=== PATIENT | male | born 1975 | race Caucasian/White ===

== ENCOUNTER 2017-06-10 01:29 | Day surgery (SDC) | payer OTHER ==
--- NOTE | 2017-06-10 02:34 | XRAY Preliminary Report ---
Exam: XR FOOT 3 VIEW RT IMPRESSION: Abnormal widening of the joint space between the bases of the first and second metatarsal s, worrisome for ligamentous injury (Lisfranc injury). Moderate dorsal soft tissue swelling. [facility] SITE ID: [id number]
--- NOTE | 2017-06-10 02:36 | XRAY Report ---
EXAM: RIGHT FOOT RADIOGRAPHY EXAM DATE: 06/10/2017 02:22 AM. CLINICAL HISTORY: Metatarsal tenderness and swelling 1st 2nd digit. COMPARISON: None. TECHNIQUE: 3 views. FINDINGS: Bones: No evident acute displaced fracture. Joints: There is abnormal widening of the space between the bases of the first and second metatarsals . Soft Tissues: Moderate dorsal soft tissue swelling. IMPRESSION: Abnormal widening of the joint space between the bases of the first and second metatarsal s, worrisome for ligamentous injury (Lisfranc injury). Moderate dorsal soft tissue swelling. [facility] Referring Provider Line: [phone] SITE ID: [id number]
[2017-06-10] MEDS ORDERED: MORPHINE 10 MG/ML VIAL IVP STA ×2 (02:52→06:24)
[2017-06-10] MEDS ORDERED: MORPHINE 10 MG/ML VIAL ONE ×2 (03:12→06:32)
[2017-06-10 03:15] LABS: BASOPHILS % (AUTO) 0.5 %; EOSINOPHILS # (AUTO) 0.2 10^3/uL (0.0-0.7); EOSINOPHILS % (AUTO) 1.6 %; HCT - HEMATOCRIT 44.5 % (42.0-52.0); LYMPHOCYTES # (AUTO) 3.4 10^3/uL (1.5-3.5); LYMPHOCYTES % (AUTO) 31.8 %; MEAN CORPUSCULAR HEMOGLOBIN 29.2 pg (27.0-31.0); MEAN CORPUSCULAR HGB CONC 33.8 g/dL (32.0-36.0); MEAN CORPUSCULAR VOLUME 86.3 fL (80.0-94.0); MEAN PLATELET VOLUME 9.6 fL (7.4-11.4); MONOCYTES # (AUTO) 0.9 10^3/uL (0.0-1.0); MONOCYTES % (AUTO) 8.3 %; NEUTROPHILS # (AUTO) 6.1 10^3/uL (1.5-6.6); NEUTROPHILS % (AUTO) 57.8 %; NUCLEATED RED BLOOD CELLS AUTO 0.1 /100WBC; RED BLOOD COUNT 5.16 10^6/uL (4.70-6.10); RED CELL DISTRIBUTION WIDTH 13.9 % (12.0-15.0); UNCORRECTED WHITE BLOOD COUNT 10.6 x10^3/uL; WHITE BLOOD COUNT 10.6 x10^3/uL (4.8-10.8)
--- NOTE | 2017-06-10 03:20 | ED Physician Documentation ---
PD HPI LOWER EXT INJURY - Stated complaint Stated Complaint: R FOOT PX - Chief complaint Chief Complaint: Ext Problem - History obtained from History obtained from: Patient - History of Present Illness PD HPI LOW EXT INJURY LOCATION: Right, Foot Type of injury: Twist Where injury occurred: Street Timing - onset: How many hours ago (7) Timing - details: Abrupt onset Improved by: Immobilization Worsened by: Moving, Palpating Similar symptoms before: Has not had sx before Recently seen: Not recently seen - Additional information Additional information: Patient is a 41 year old male with no significant past medical history who is presenting to the emergency department for foot pain. Patient states that he was stepping off a step when he caught his toes underneath him pushing his foot forward. The injury occurred about 7 hours prior. Patient denies any other trauma but states that the pain and swelling just kept getting progressively worse so he came in for evaluation. Review of Systems Constitutional: denies: Fever, Chills Eyes: reports: Reviewed and negative Ears: reports: Reviewed and negative Nose: reports: Reviewed and negative Throat: reports: Reviewed and negative Cardiac: reports: Reviewed and negative Respiratory: reports: Reviewed and negative GI: reports: Reviewed and negative : reports: Reviewed and negative Skin: reports: Lesions. denies: Laceration (s) Musculoskeletal: reports: Extremity pain, Extremity swelling, Pain with weight bearing Neurologic: denies: Generalized weakness, Focal weakness, Numbness Psychiatric: reports: Reviewed and negative Endocrine: reports: Reviewed and negative Immunocompromised: denies: Immunocompromised PD PAST MEDICAL HISTORY - Past Medical History Cardiovascular: None Respiratory: None Neuro: None Endocrine/Autoimmune: None GI: None : None HEENT: None Psych: Depression, Anxiety Musculoskeletal: None Derm: None - Past Surgical History Past Surgical History: Yes Ortho: Arthroscopic surgery HEENT: Tonsil/Adenoidectomy - Present Medications Home Medications: Ambulatory Orders Medication Instructions Recorded Confirmed Aripiprazole [Abilify] 30 mg ORAL DAILY 12/10/15 12/10/15 Bupropion HCl [Wellbutrin] 150 mg ORAL BID 12/10/15 12/10/15 HYDROcod/ACETAM 5/325 [[place] 5/325] 1 tab ORAL BID 12/10/15 12/10/15 Hydrocodone/Acetaminophen [[place] 1 each PO Q6H PRN #20 tablet 12/10/15 5-325 Tablet] Naproxen [Naprosyn] 500 mg PO BID 10 Days tablet 12/10/15 clonazePAM [Clonazepam] 0.5 mg ORAL DAILY PRN 12/10/15 12/10/15 - Allergies Allergies/Adverse Reactions: Allergies Allergy/AdvReac Type Severity Reaction Status Date / Time No Known Drug Allergies Allergy Verified 06/10/17 01:38 - Social History Does the pt smoke?: Yes Smoking Status: Current every day smoker Does the pt drink ETOH?: No Does the pt have substance abuse?: No - Immunizations Immunizations are current?: Yes PD ED PE NORMAL - Vitals Vital signs reviewed: Yes - General General: Alert and oriented X 3, Well developed/nourished - HEENT HEENT: Atraumatic, PERRL, Moist mucous membranes - Neck Neck: No bony TTP - Cardiac Cardiac: RRR, No murmur - Respiratory Respiratory: No respiratory distress - Abdomen Abdomen: Non distended - Neuro Neuro: Alert and oriented X 3, No motor deficit, No sensory deficit, Normal speech Eye Opening: Spontaneous Motor: Obeys Commands Verbal: Oriented GCS Score: 15 - Psych Psych: Normal mood PD ED PE EXPANDED - Derm Derm: Bruising (of right foot) - Extremities Extremities: Right foot (tenderness and swelling over 1st and 2nd metatarsal on right foot) Results - Vitals Vitals: Vital Signs - 24 hr 06/10/17 06/10/17 01:34 03:50 Temperature 36.8 C Heart Rate 86 76 Respiratory 18 18 Rate Blood Pressure 140/89 H 131/78 H O2 Saturation 95 96 Oxygen O2 Source Room air - Labs Labs: Laboratory Tests 06/10/17 06/10/17 03:00 03:00 WBC 10.6 RBC 5.16 Hgb 15.0 Hct 44.5 MCV 86.3 MCH 29.2 MCHC 33.8 RDW 13.9 Plt Count 208 MPV 9.6 Neut # 6.1 Lymph # 3.4 [place] # 0.9 Eos # 0.2 Baso # 0.0 Absolute Nucleated RBC 0.01 Nucleated RBC % 0.1 Sodium 137 Potassium 4.0 Chloride 104 Carbon Dioxide 24 Anion Gap 9.0 BUN 14 Creatinine 0.9 Estimated GFR (MDRD) 93 Glucose 118 H Calcium 9.1 Total Bilirubin 0.5 AST 27 ALT 33 Alkaline Phosphatase 52 Total Protein 7.6 Albumin 4.6 Globulin 3.0 Albumin/Globulin Ratio 1.5 Lipase 19 L - Rads (name of study) right foot Radiology: Final report received (abnormal widening of joint space concerning for lisfranc injury) ct foot Radiology: Final report received, Discussed with rads (lisfranc fracture/ dislocation) PD MEDICAL DECISION MAKING - ED course Complexity details: reviewed old records, reviewed results, re-evaluated patient , considered differential, d/w patient, d/w managed services sales consultant ED course: Patient was seen and examined at bedside. patient was sent for imaging. When patient returned the results were reviewed and were worrisome for lisfranc injury. yardage caller orthopedist was contacted, Dr. Heredia and case was discussed with him. He recommended CT for further evaluation and possible OR. CT was ordered. IV access was gained and labs were drawn. Patient was treated with morphine for pain. When patient return from CT results were reviewed. CT confirmed the findings. Patient did have a lisfranc fx/dislocation. case was again discussed with orthopedic systems development consultant who agreed to accept the patient for likely surgery later today. Departure - Departure Disposition: ED Place in Observation Clinical Impression: Lisfranc dislocation Condition: Stable
[2017-06-10 03:26] LABS: ALBUMIN/GLOBULIN RATIO 1.5 (1.0-2.2); BILIRUBIN,TOTAL 0.5 mg/dL (0.2-1.0); CALCIUM 9.1 mg/dL (8.5-10.3); CREATININE 0.9 mg/dL (0.6-1.2); TOTAL PROTEIN 7.6 g/dL (6.7-8.2)
--- NOTE | 2017-06-10 04:06 | CT Preliminary Report ---
Exam: CT LOWER EXTREMITY RIGHT W/O IMPRESSION: There are small corner fractures noted at the base of the second metatarsal. Tiny avulsio n fracture is also seen along the plantar aspect of the base of the first metatarsal. There is abnorm al widening of the joint space between the first and second metatarsal bases. Furthermore, there is s ubtle plantar subluxation of the first metatarsal base relative to the second metatarsal base. Combin ed findings are consistent with a Lisfranc fracture dislocation. Consultation with orthopedic surgery would be helpful. DANIELA The call report notification system was initiated by Dr. Melanie Hi at 04:00 hrs on 06/10/17. The above findings were discussed with Dr. Hussein by Dr. Melanie Hi at 04:03 hrs on 06/10/17. SITE ID: [id number]
--- NOTE | 2017-06-10 04:30 | CT Report ---
EXAM: RIGHT FOOT CT WITHOUT CONTRAST EXAM DATE: 06/10/2017 03:25 AM. CLINICAL HISTORY: Possible Lisfranc injury. COMPARISON: None. TECHNIQUE: Thin-section axial images were acquired of the hip without contrast. Post-processing: Will nal and sagittal reformats. Other: None. In accordance with CT protocol optimization, one or more of the following dose reduction techniques w ere utilized for this exam: automated exposure control, adjustment of mA and/or KV based on patient s ize, or use of iterative reconstructive technique. FINDINGS: Bones: Small corner fractures are noted at the base of the second metatarsal projecting in between th e bases of the first and second metatarsal bones. Tiny ossific fragment also projects along the plant ar aspect of the base of the first metatarsal, best seen on the coronal images (image 69 series 11). Additional corner fracture is noted through the lateral aspect of the base of the second metatarsal ( image 92 image 3 and image 51 series 7). Small well-corticated ossific fragments inferior to the medi al malleolus, suggestive of a remote injury. Joints: There is slight widening of the joint space between the bases of the first and the second met atarsals. There also appears to be slight plantar subluxation of the base of the first metatarsal rel ative to the second metatarsal. Soft tissues: There is moderate dorsal soft tissue swelling. IMPRESSION: There are small corner fractures noted at the base of the second metatarsal. Tiny avulsio n fracture is also seen along the plantar aspect of the base of the first metatarsal. There is abnorm al widening of the joint space between the first and second metatarsal bases. Furthermore, there is s ubtle plantar subluxation of the first metatarsal base relative to the second metatarsal base. Combin ed findings are consistent with a Lisfranc fracture dislocation. Consultation with orthopedic surgery would be helpful. [facility] The call report notification system was initiated by Dr. Melanie Hi at 04:00 hrs on 06/10/17. The above findings were discussed with Dr. Hussein by Dr. Melanie Hi at 04:03 hrs on 06/10/17. Referring Provider Line: [phone] SITE ID: [id number]
[2017-06-10] MEDS ORDERED: ceFAZolin 2 GM/50 ML 2 GM/50 ML BAG IV SCH (05:41)
[2017-06-10] MEDS ORDERED: LACTATED RINGERS 1,000 ML IV SCH (06:00)
--- NOTE | 2017-06-10 06:17 | HISTORY & PHYSICAL EXAMINATION ---
HPI - Admitted From Admitted from: ED - History Obtained From History obtained from: Patient - History of Present Illness Pain/Problem Location Description: Right Midfoot Severity at the worst: reports: Severe Pain Quality: reports: Sharp Context-Pain started w/: reports: Other (Injury misstep on stairs) Timing: reports: Abrupt onset Duration: reports: Hours: (2) Improved with: reports: Nothing Worsened by: reports: Movement HPI Comment/Other: Only injury PMH/PSH - Past Medical History Cardiovascular: positive: None, Other (Sleep apnea) Respiratory: positive: None, Sleep apnea Neuro: positive: None Endocrine/Autoimmune: positive: None GI: positive: None : positive: None HEENT: positive: None Psych: positive: Depression, Anxiety Musculoskeletal: positive: None Derm: positive: None MRSA Hx?: No - Past Surgical History Ortho: positive: Arthroscopic surgery, Other (Fibroma removal left foot) HEENT: positive: Tonsil/Adenoidectomy Social & Family Hx - Living Situation Living Arrangement: At home Living Situation: With spouse/s.o. - Social History Does the pt smoke?: Yes Smoking Status: Current every day smoker Does the pt drink ETOH?: No Does the pt have substance abuse?: No Additional Social History: Tatoo artist - POLST Patient has POLST: No Meds/Allgy - Home Medications Home Medications: Ambulatory Orders Medication Instructions Recorded Confirmed Aripiprazole [Abilify] 30 mg ORAL DAILY 12/10/15 12/10/15 Bupropion HCl [Wellbutrin] 150 mg ORAL BID 12/10/15 12/10/15 HYDROcod/ACETAM 5/325 [[place] 5/325] 1 tab ORAL BID 12/10/15 12/10/15 Hydrocodone/Acetaminophen [[place] 1 each PO Q6H PRN #20 tablet 12/10/15 5-325 Tablet] Naproxen [Naprosyn] 500 mg PO BID 10 Days tablet 12/10/15 clonazePAM [Clonazepam] 0.5 mg ORAL DAILY PRN 12/10/15 12/10/15 - Allergies Allergies/Adverse Reactions: Allergies Allergy/AdvReac Type Severity Reaction Status Date / Time No Known Drug Allergies Allergy Verified 06/10/17 01:38 Exam - Vital Signs Reviewed Vital Signs: Yes Vital Signs: Vital Signs x48h Temp Pulse Resp BP Pulse Ox 06/10/17 03:50 76 18 131/78 H 96 06/10/17 01:34 36.8 C 86 18 140/89 H 95 - Physical Exam General Appearance: positive: Mild distress Eyes Bilateral: positive: Normal inspection ENT: positive: ENT inspection nml Neck: positive: Nml inspection Respiratory: positive: Breath sounds nml Cardiovascular: positive: Regular rate & rhythm, No murmur Peripheral Pulses: positive: 2+ Skin: positive: Other (extensive tatoos) Extremities: positive: Other (RIght foot with mild swelling. Dorsal midfoot prominence) Results - Lab Results Fish Bones: 06/10/17 03:00 06/10/17 03:00 Other Lab Results: Lab Results x24hrs 06/10/17 06/10/17 Range/Units 03:00 03:00 WBC 10.6 (4.8-10.8) x10^3/uL RBC 5.16 (4.70-6.10) 10^6/uL Hgb 15.0 (14.0-18.0) g/dL Hct 44.5 (42.0-52.0) % MCV 86.3 (80.0-94.0) fL MCH 29.2 (27.0-31.0) pg MCHC 33.8 (32.0-36.0) g/dL RDW 13.9 (12.0-15.0) % Plt Count 208 (130-450) 10^3/uL MPV 9.6 (7.4-11.4) fL Neut # 6.1 (1.5-6.6) 10^3/uL Lymph # 3.4 (1.5-3.5) 10^3/uL [place] # 0.9 (0.0-1.0) 10^3/uL Eos # 0.2 (0.0-0.7) 10^3/uL Baso # 0.0 (0.0-0.1) 10^3/uL Absolute Nucleated RBC 0.01 x10^3/uL Nucleated RBC % 0.1 /100WBC Sodium 137 (135-145) mmol/L Potassium 4.0 (3.5-5.0) mmol/L Chloride 104 (101-111) mmol/L Carbon Dioxide 24 (21-32) mmol/L Anion Gap 9.0 (6-13) BUN 14 (6-20) mg/dL Creatinine 0.9 (0.6-1.2) mg/dL Estimated GFR (MDRD) 93 (>89) Glucose 118 H (70-100) mg/dL Calcium 9.1 (8.5-10.3) mg/dL Total Bilirubin 0.5 (0.2-1.0) mg/dL AST 27 (10-42) IU/L ALT 33 (10-60) IU/L Alkaline Phosphatase 52 (42-121) IU/L Total Protein 7.6 (6.7-8.2) g/dL Albumin 4.6 (3.2-5.5) g/dL Globulin 3.0 (2.1-4.2) g/dL Albumin/Globulin Ratio 1.5 (1.0-2.2) Lipase 19 L (22-51) U/L - Diagnostic Imaging Results Diagnostic Imaging Results: positive: Other (XR right foot 3 v shows midfoot abnormalit but difficult to visualize CT scan show dorsal dislocation of proximal 2nd metatarsal with necessary rupture of 3 dorsal ligaments.) Impression/Plan - Problem List Problem List: RIght foot Lisfrancs fracture dislocation. Explained to patient with diagrams from text. 2nd metatarsal must be reduced and held firmly for 6 weeks minimum to allow for seure healing and better function in the long-run He seemed to understand after few questions. Patient signed consent in my presence. Surgery planned for later today as allowed by schedule. Probable DC after surgery.
[2017-06-10] MEDS ORDERED: oxyCOD/ACETAMIN 5 MG/325 MG TABLET PO PRN (10:54)
--- NOTE | 2017-06-10 11:08 | DISCHARGE SUMMARY ---
Discharge Summary Admit Date: 06/10/17 Discharge Date: 06/10/17 Discharging Provider: Fabian Primary Care Provider: Fabian Code Status: Attempt Resuscitation Condition at Discharge: Fair Discharge Disposition: 01 Home, Self Care - DIAGNOSES Admission Diagnoses: Lisfranc fx right foot Discharge Diagnoses with Status of Each Condition: same - HPI History of Present Illness: Fell at home Lisfranc fracture dislocation to right midfoot Waiting in ER for OR time, but OR had to be cancelled for facility problems - HOSPITAL COURSE Hospital Course: Waiting in ER for OR time, but OR had to be cancelled for facility problems Short LEg Splint applied - ALLERGIES Allergies/Adverse Reactions: Allergies Allergy/AdvReac Type Severity Reaction Status Date / Time No Known Drug Allergies Allergy Verified 06/10/17 01:38 - MEDICATIONS Home Medications: Ambulatory Orders Medication Instructions Recorded Confirmed Aripiprazole [Abilify] 30 mg ORAL DAILY 12/10/15 12/10/15 Bupropion HCl [Wellbutrin] 150 mg ORAL BID 12/10/15 12/10/15 HYDROcod/ACETAM 5/325 [[place] 5/325] 1 tab ORAL BID 12/10/15 12/10/15 Hydrocodone/Acetaminophen [[place] 1 each PO Q6H PRN #20 tablet 12/10/15 5-325 Tablet] Naproxen [Naprosyn] 500 mg PO BID 10 Days tablet 12/10/15 clonazePAM [Clonazepam] 0.5 mg ORAL DAILY PRN 12/10/15 12/10/15 oxyCODONE/ACET 5/325 [Percocet 5 2 each PO Q4-6H PRN #30 tablet MDD 06/10/17 mg/325 mg] 10 - PHYSICAL EXAM AT DISCHARGE Extremities: positive: Other (No change from initial evaluation) - LABS Result Diagrams: 06/10/17 03:00 06/10/17 03:00
[2017-06-10] MEDS ORDERED: oxyCOD/ACETAMIN 5 MG/325 MG TABLET PO ONE (11:11)
--- NOTE | 2017-06-10 11:14 | Discharge Plan ---
Discharge Plan Disposition: Home, Self Care Condition: Fair Prescriptions: oxyCODONE/ACET 5/325 [Percocet 5 mg/325 mg] 2 each PO Q4-6H PRN #30 tablet MDD 10 PRN Reason: Pain Diet: Regular Activity Restrictions: Activity as Tolerated Shower Restrictions: No Driving Restrictions: No Additional Instructions or Follow Up instructions: Your are calling Dr. Peralta to see if you need surgery tomorrow. [phone]. Please do not eat or drink anything after midnight [facility] No Smoking: If you smoke, Please STOP! Call for help. Follow-up with: Yang Bolivar MD [Primary Care Provider] -
[2017-06-10] MEDS ORDERED: oxyCOD/ACETAMIN 5 MG/325 MG TABLET PO STA (11:15)
[2017-06-10 11:26] VITALS: BP 140/95
== END 2017-06-10 05:42 | disposition home or self-care (01) ==
LOC: ED 01:29 → SDS 05:41
PROVIDERS: ATTEND Orthopaedic Surgery
DX: S93.324A Dislocation of tarsometatarsal joint of right foot, initial encounter (principal); W10.1XXA Fall (on)(from) sidewalk curb, initial encounter
CPT/HCPCS: 36415; 73630; 73700; 80053; 83690; 85025; 96361; 96374; 96376; 99284; 99285; A9270

== ENCOUNTER 2017-09-19 10:32 | Outpatient (CLI) | payer OTHER | END 2017-09-19 10:33 | disposition home or self-care (01) | LOC: SC 10:32 | PROVIDERS: ATTEND Internal Medicine Pulmonary Disease | DX: G47.33 Obstructive sleep apnea (adult) (pediatric) (principal) | CPT/HCPCS: 99203; 99212 ==